=== PATIENT | female | born 1960 | race Caucasian/White ===

== ENCOUNTER → 2020-06-29 10:15 | Outpatient (BNVA) | payer OTHER, SELFPAY | PROVIDERS: PCP Family Medicine; Visit Provider Nurse Practitioner Gerontology | DX: Z13.89 Encounter for screening for other disorder (principal) | CPT/HCPCS: Q3014 ==

== ENCOUNTER → 2020-10-28 10:06 | Outpatient (BNVA) | payer OTHER, SELFPAY | PROVIDERS: PCP Family Medicine; Visit Provider Nurse Practitioner Family | DX: M17.0 Bilateral primary osteoarthritis of knee (principal); M25.511 Pain in right shoulder; G89.29 Other chronic pain | CPT/HCPCS: 99202 ==

== ENCOUNTER 2020-11-30 06:38 | Outpatient (REF) | payer OTHER, SELFPAY ==
--- NOTE | ~2020-11-30 | FL_ITS ---
EXAMINATION: XR FLUOROSCOPY WITH IMAGES CLINICAL INFORMATION: M17.0 - Bilateral primary osteoarthritis of knee COMPARISON: None. TECHNIQUE: Fluoroscopy performed by Blaire Man NP. Fluoroscopy time: 0.3 minutes DAP: 0.971 Gycm2 Images: 2 FINDINGS: There are spinal needles adjacent to the distal femur on the medial and lateral sides, mid depth. There is also a spinal needle adjacent to the medial side proximal tibia mid depth. There is tricompartment osteoarthritis, greatest medial compartment with joint narrowing and subchondral sclerosis and osteophytes. There is secondary genu varus. FL/FL guidance in treatment room IMPRESSION: Fluoroscopy for pain management procedure.
== END 2020-11-30 06:39 | disposition home or self-care (01) ==
LOC: HO.RADIR 06:38
PROVIDERS: Visit Provider Internal Medicine
DX: G89.29 Other chronic pain (principal); M25.562 Pain in left knee; M25.561 Pain in right knee; M17.0 Bilateral primary osteoarthritis of knee
CPT/HCPCS: 64450; 64454

== ENCOUNTER → 2020-12-05 11:05 | Outpatient (BNVA) | payer OTHER, SELFPAY | PROVIDERS: PCP Family Medicine; Visit Provider Internal Medicine | DX: M25.561 Pain in right knee (principal); M25.562 Pain in left knee; G89.29 Other chronic pain | CPT/HCPCS: Q3014 ==

== ENCOUNTER → 2020-12-12 11:49 | Outpatient (BNVA) | payer OTHER, SELFPAY | PROVIDERS: PCP Family Medicine; Visit Provider Internal Medicine | DX: M25.561 Pain in right knee (principal); M25.562 Pain in left knee; M25.511 Pain in right shoulder; G89.29 Other chronic pain | CPT/HCPCS: Q3014 ==

== ENCOUNTER 2021-01-11 07:00 | Outpatient (REF) | payer OTHER, SELFPAY | END 2021-01-11 07:01 | disposition home or self-care (01) | LOC: HO.RADIR 07:00 | PROVIDERS: Visit Provider Internal Medicine | DX: Z13.89 Encounter for screening for other disorder (principal) ==

== ENCOUNTER 2021-01-25 06:17 | Outpatient (REF) | payer OTHER, SELFPAY ==
--- NOTE | ~2021-01-25 | FL_ITS ---
EXAMINATION: XR FLUOROSCOPY WITH IMAGES CLINICAL INFORMATION: M25.561 - Pain in right knee COMPARISON: None. TECHNIQUE: Fluoroscopy performed by Dr. Vivas. Fluoroscopy time: 0.3 minutes DAP: 1.61 Gycm2 Images: 2 FINDINGS: There are needles adjacent to the distal femur on both the medial and lateral sides at mid depth. There is also a needle adjacent to the medial side proximal tibia at mid depth. There is tricompartment right knee osteoarthritis, greatest medial knee joint compartment with secondary genu varus. FL/FL guidance in treatment room IMPRESSION: Fluoroscopy for pain management procedure.
== END 2021-01-25 06:18 | disposition home or self-care (01) ==
LOC: HO.RADIR 06:17
PROVIDERS: Visit Provider Internal Medicine
DX: G89.29 Other chronic pain (principal); M25.561 Pain in right knee; M17.0 Bilateral primary osteoarthritis of knee
CPT/HCPCS: 64450; 64454

== ENCOUNTER → 2021-02-01 12:02 | Outpatient (BNVA) | payer OTHER, SELFPAY | PROVIDERS: PCP Family Medicine; Visit Provider Nurse Practitioner Family | DX: Z13.89 Encounter for screening for other disorder (principal) | CPT/HCPCS: Q3014 ==

== ENCOUNTER 2021-05-24 12:19 | Day surgery (SDC) | payer OTHER, SELFPAY ==
--- NOTE | 2021-05-23 09:31 | P.CONAN_ITS ---
Documented by User: Keisha Toth NP 05/23/21 09:35 HPI - Anesthesia Eval Consult details Narrative: 60yo F for Left Genicular Nerve RFA Cardiac cleared at low risk *Multiple Med Allergies* PMFSH Active Problems Active Problems: All Active Problems (Updated 12/01/20 @ 13:16 by Enrique Vivas MD) Bilateral chronic knee pain (Acute) Chronic right shoulder pain (Acute) Bilateral primary osteoarthritis of knee (Acute) Controlled diabetes mellitus without complication, without long-term current use of insulin (Acute) Hyperlipidemia LDL goal <100 (Acute) Essential hypertension (Acute) Morbid obesity due to excess calories (Acute) Past Medical History Medical History (Updated 05/23/21 @ 09:35 by Keisha Toth NP) Asthma Bilateral chronic knee pain Binge eating disorder CAD (coronary artery disease) Carpal tunnel syndrome Controlled diabetes mellitus without complication, without long-term current use of insulin Essential hypertension GERD (gastroesophageal reflux disease) Hearing loss Hyperlipidemia LDL goal <100 Lymphedema Morbid obesity due to excess calories DAVE (obstructive sleep apnea) Osteoarthritis PTSD (post-traumatic stress disorder) Family History Family History (Updated 06/29/20 @ 13:15 by LOULOU Gentile) Father CVD (cardiovascular disease) Mother CVD (cardiovascular disease) Surgical History Surgical History (Updated 05/23/21 @ 09:35 by Keisha Toth NP) History of cardiac cath Hx of arthroscopy Hx of knee surgery Hx of shoulder surgery Hx of tonsillectomy Hx of total hysterectomy Social History Social History (Updated 06/29/20 @ 10:16 by LOULOU Gentile) Household Members: None Patient Tobacco Use Status: Never used Tobacco Use of substances other than those prescribed or required for medical reasons: No Are you DNR?: No Advance Directives: No Advance Directives Information Provided: Yes Recently lost weight without trying: No Nutrition Risks: No Nutritional Risk Meds Allergies Allergy/AdvReac Type Severity Reaction Status Date / Time amitriptyline Allergy Unknown unknown Verified 02/01/21 12:04 butoconazole Allergy Unknown unknown Verified 02/01/21 12:04 carbamazepine Allergy Unknown unknown Verified 02/01/21 12:04 cyclobenzaprine Allergy Unknown hives Verified 02/01/21 12:04 eszopiclone Allergy Unknown hives Verified 02/01/21 12:04 haloperidol Allergy Unknown hives Verified 02/01/21 12:04 naproxen Allergy Unknown unknown Verified 02/01/21 12:04 penicillamine Allergy Unknown hives Verified 02/01/21 12:04 perphenazine Allergy Unknown Unknown Verified 02/01/21 12:04 topiramate Allergy Unknown unknown Verified 02/01/21 12:04 zolpidem Allergy Unknown unknown Verified 02/01/21 12:04 Anaprox Allergy Unknown unknown Uncoded 02/01/21 12:04 ChlorproMAZINE Allergy Unknown hives Uncoded 02/01/21 12:04 Elavil Allergy Unknown hives Uncoded 02/01/21 12:04 kiwi Allergy Unknown hives Uncoded 02/01/21 12:04 peaches Allergy Unknown hives Uncoded 02/01/21 12:04 Perphenazine-Amitriptylin Allergy Unknown hives Uncoded 02/01/21 12:04 e squash Allergy Unknown Hives Uncoded 02/01/21 12:04 Sulfacet-R Allergy Unknown hives Uncoded 02/01/21 12:04 Thorazine Allergy Unknown hives Uncoded 02/01/21 12:04 Home Medications Medication Instructions Recorded Confirmed Last Taken Type Saccharomyces 250 mg PO DAILY 06/29/20 11/30/20 Unknown History boulardii 250 mg capsule acetaminophen 500 1,000 mg PO tab 06/29/20 11/30/20 Unknown History mg tablet albuterol sulfate 2 puff 06/29/20 11/30/20 Unknown History 90 mcg/actuation INHALATION Q4-6H PRN aerosol inhaler atorvastatin 40 40 mg PO tab 06/29/20 11/30/20 Unknown History mg tablet blood sugar #10 ea 06/29/20 11/30/20 Unknown History diagnostic cetirizine 10 mg 10 mg PO tab 06/29/20 11/30/20 Unknown History tablet cholecalciferol 50 mcg PO DAILY 06/29/20 11/30/20 Unknown History (vitamin D3) 50 mcg (2,000 unit) tablet clonazepam 0.5 mg 0.5 mg PO BID 06/29/20 11/30/20 Unknown History tablet PRN cranberry fruit 450 mg PO tab 06/29/20 11/30/20 Unknown History 450 mg tablet duloxetine 30 mg 30 mg PO DAILY 06/29/20 11/30/20 Unknown History capsule,delayed release furosemide 20 mg 20 mg PO DAILY 06/29/20 11/30/20 Unknown History tablet gabapentin 300 mg 600 mg PO TID 06/29/20 11/30/20 Unknown History capsule cap lancets 28 gauge #100 ea 06/29/20 11/30/20 Unknown History levothyroxine 50 50 mcg PO DAILY 06/29/20 11/30/20 Unknown History mcg tablet losartan 25 mg 12.5 mg PO DAILY 06/29/20 11/30/20 Unknown History tablet metformin 500 mg 500 mg PO BID 06/29/20 11/30/20 Unknown History tablet multivitamin 1 tab PO DAILY 06/29/20 11/30/20 Unknown History omeprazole 40 mg 40 mg PO DAILY 06/29/20 11/30/20 Unknown History capsule,delayed release polyethylene g PO 06/29/20 11/30/20 Unknown History glycol 3350 17 gram/dose oral powder risperidone 1 mg 1 mg PO BID 06/29/20 11/30/20 Unknown History tablet trazodone 50 mg 50 mg PO BEDTIME 06/29/20 11/30/20 Unknown History tablet aspirin 81 mg 81 mg PO DAILY 10/28/20 11/30/20 Unknown History tablet,delayed release (Adult Low Dose Aspirin) benztropine 1 mg 1 mg PO BID 10/28/20 11/30/20 Unknown History tablet lubiprostone 24 24 mcg PO BID 10/28/20 11/30/20 Unknown History mcg capsule cap oxcarbazepine 150 150 mg PO BID 10/28/20 11/30/20 Unknown History mg tablet (Trileptal) zafirlukast 20 mg 20 mg PO BID 10/28/20 11/30/20 Unknown History tablet (Accolate) Exam Exam Date and Time: May 23, [id number] Assessment and Plan Assessment Anesthesia Assessment: Chart Reviewed Documented by User: Demetrio Newton MD 05/24/21 14:58 [facility] Past Medical History Medical History (Updated 05/23/21 @ 09:35 by Keisha Toth NP) Asthma Bilateral chronic knee pain Binge eating disorder CAD (coronary artery disease) Carpal tunnel syndrome Controlled diabetes mellitus without complication, without long-term current use of insulin Essential hypertension GERD (gastroesophageal reflux disease) Hearing loss Hyperlipidemia LDL goal <100 Lymphedema Morbid obesity due to excess calories DAVE (obstructive sleep apnea) Osteoarthritis PTSD (post-traumatic stress disorder) Family History Family History (Updated 06/29/20 @ 13:15 by LOULOU Gentile) Father CVD (cardiovascular disease) Mother CVD (cardiovascular disease) Family history of problems with anesthesia: No Surgical History Surgical History (Updated 05/23/21 @ 09:35 by Keisha Toth NP) History of cardiac cath Hx of arthroscopy Hx of knee surgery Hx of shoulder surgery Hx of tonsillectomy Hx of total hysterectomy History of Problems with Anesthesia: No Social History Social History (Updated 06/29/20 @ 10:16 by LOULOU Gentile) Household Members: None Patient Tobacco Use Status: Never used Tobacco Use of substances other than those prescribed or required for medical reasons: No Are you DNR?: No Advance Directives: No Advance Directives Information Provided: Yes Recently lost weight without trying: No Nutrition Risks: No Nutritional Risk Meds Allergies Allergy/AdvReac Type Severity Reaction Status Date / Time amitriptyline Allergy Unknown unknown Verified 02/01/21 12:04 butoconazole Allergy Unknown unknown Verified 02/01/21 12:04 carbamazepine Allergy Unknown unknown Verified 02/01/21 12:04 cyclobenzaprine Allergy Unknown hives Verified 02/01/21 12:04 eszopiclone Allergy Unknown hives Verified 02/01/21 12:04 haloperidol Allergy Unknown hives Verified 02/01/21 12:04 naproxen Allergy Unknown unknown Verified 02/01/21 12:04 penicillamine Allergy Unknown hives Verified 02/01/21 12:04 perphenazine Allergy Unknown Unknown Verified 02/01/21 12:04 topiramate Allergy Unknown unknown Verified 02/01/21 12:04 zolpidem Allergy Unknown unknown Verified 02/01/21 12:04 Anaprox Allergy Unknown unknown Uncoded 02/01/21 12:04 ChlorproMAZINE Allergy Unknown hives Uncoded 02/01/21 12:04 Elavil Allergy Unknown hives Uncoded 02/01/21 12:04 kiwi Allergy Unknown hives Uncoded 02/01/21 12:04 peaches Allergy Unknown hives Uncoded 02/01/21 12:04 Perphenazine-Amitriptylin Allergy Unknown hives Uncoded 02/01/21 12:04 e squash Allergy Unknown Hives Uncoded 02/01/21 12:04 Sulfacet-R Allergy Unknown hives Uncoded 02/01/21 12:04 Thorazine Allergy Unknown hives Uncoded 02/01/21 12:04 Home Medications Medication Instructions Recorded Confirmed Last Taken Type Saccharomyces 250 mg PO DAILY 06/29/20 11/30/20 Unknown History boulardii 250 mg capsule acetaminophen 500 1,000 mg PO tab 06/29/20 11/30/20 Unknown History mg tablet albuterol sulfate 2 puff 06/29/20 11/30/20 Unknown History 90 mcg/actuation INHALATION Q4-6H PRN aerosol inhaler atorvastatin 40 40 mg PO tab 06/29/20 11/30/20 Unknown History mg tablet blood sugar #10 ea 06/29/20 11/30/20 Unknown History diagnostic cetirizine 10 mg 10 mg PO tab 06/29/20 11/30/20 Unknown History tablet cholecalciferol 50 mcg PO DAILY 06/29/20 11/30/20 Unknown History (vitamin D3) 50 mcg (2,000 unit) tablet clonazepam 0.5 mg 0.5 mg PO BID 06/29/20 11/30/20 Unknown History tablet PRN cranberry fruit 450 mg PO tab 06/29/20 11/30/20 Unknown History 450 mg tablet duloxetine 30 mg 30 mg PO DAILY 06/29/20 11/30/20 Unknown History capsule,delayed release furosemide 20 mg 20 mg PO DAILY 06/29/20 11/30/20 Unknown History tablet gabapentin 300 mg 600 mg PO TID 06/29/20 11/30/20 Unknown History capsule cap lancets 28 gauge #100 ea 06/29/20 11/30/20 Unknown History levothyroxine 50 50 mcg PO DAILY 06/29/20 11/30/20 Unknown History mcg tablet losartan 25 mg 12.5 mg PO DAILY 06/29/20 11/30/20 Unknown History tablet metformin 500 mg 500 mg PO BID 06/29/20 11/30/20 Unknown History tablet multivitamin 1 tab PO DAILY 06/29/20 11/30/20 Unknown History omeprazole 40 mg 40 mg PO DAILY 06/29/20 11/30/20 Unknown History capsule,delayed release polyethylene g PO 06/29/20 11/30/20 Unknown History glycol 3350 17 gram/dose oral powder risperidone 1 mg 1 mg PO BID 06/29/20 11/30/20 Unknown History tablet trazodone 50 mg 50 mg PO BEDTIME 06/29/20 11/30/20 Unknown History tablet aspirin 81 mg 81 mg PO DAILY 10/28/20 11/30/20 Unknown History tablet,delayed release (Adult Low Dose Aspirin) benztropine 1 mg 1 mg PO BID 10/28/20 11/30/20 Unknown History tablet lubiprostone 24 24 mcg PO BID 10/28/20 11/30/20 Unknown History mcg capsule cap oxcarbazepine 150 150 mg PO BID 10/28/20 11/30/20 Unknown History mg tablet (Trileptal) zafirlukast 20 mg 20 mg PO BID 10/28/20 11/30/20 Unknown History tablet (Accolate) Exam Airway Mallampati Class: III TM Dist: >3cm Neck ROM: Full Loose/Missing/Broken Teeth: No Heart: [id number] Lungs: cta b/l Assessment and Plan Assessment Anesthesia Assessment: Anesthesia Plan Discussed Final Anesthetic Review Family History of Problems with Anesthesia: No History of Problems with Anesthesia: No NPO: Yes ASA Class: III Final Preanesthetic Review: No Changes in Pt Med Stat, Meds/Allgs Chart Reviewed, Consent Obtained/Reviewed and Anes Risks/Benef Reviewed Patient Risk: Intermediate Procedure Risk: Low Assessment/Block/Sedation in SS: Assess/Block/Sedation-SS Anesthetic Plan Anesthetic Plan: MAC: and Agree w/ Assess. and Plan Disposition: Standard PACU
--- NOTE | 2021-05-23 09:31 | HO.ANESPROP2 ---
Documented by User: Keisha Toth NP 05/23/21 09:35 HPI - Anesthesia Eval Consult details Narrative: 60yo F for Left Genicular Nerve RFA Cardiac cleared at low risk *Multiple Med Allergies* PMFSH Active Problems Active Problems: All Active Problems (Updated 12/01/20 @ 13:16 by Enrique Vivas MD) Bilateral chronic knee pain (Acute) Chronic right shoulder pain (Acute) Bilateral primary osteoarthritis of knee (Acute) Controlled diabetes mellitus without complication, without long-term current use of insulin (Acute) Hyperlipidemia LDL goal <100 (Acute) Essential hypertension (Acute) Morbid obesity due to excess calories (Acute) Past Medical History Medical History (Updated 05/23/21 @ 09:35 by Keisha Toth NP) Asthma Bilateral chronic knee pain Binge eating disorder CAD (coronary artery disease) Carpal tunnel syndrome Controlled diabetes mellitus without complication, without long-term current use of insulin Essential hypertension GERD (gastroesophageal reflux disease) Hearing loss Hyperlipidemia LDL goal <100 Lymphedema Morbid obesity due to excess calories DAVE (obstructive sleep apnea) Osteoarthritis PTSD (post-traumatic stress disorder) Family History Family History (Updated 06/29/20 @ 13:15 by LOULOU Gentile) Father CVD (cardiovascular disease) Mother CVD (cardiovascular disease) Surgical History Surgical History (Updated 05/23/21 @ 09:35 by Keisha Toth NP) History of cardiac cath Hx of arthroscopy Hx of knee surgery Hx of shoulder surgery Hx of tonsillectomy Hx of total hysterectomy Social History Social History (Updated 06/29/20 @ 10:16 by LOULOU Gentile) Household Members: None Patient Tobacco Use Status: Never used Tobacco Use of substances other than those prescribed or required for medical reasons: No Are you DNR?: No Advance Directives: No Advance Directives Information Provided: Yes Recently lost weight without trying: No Nutrition Risks: No Nutritional Risk Meds Allergies Allergy/AdvReac Type Severity Reaction Status Date / Time amitriptyline Allergy Unknown unknown Verified 02/01/21 12:04 butoconazole Allergy Unknown unknown Verified 02/01/21 12:04 carbamazepine Allergy Unknown unknown Verified 02/01/21 12:04 cyclobenzaprine Allergy Unknown hives Verified 02/01/21 12:04 eszopiclone Allergy Unknown hives Verified 02/01/21 12:04 haloperidol Allergy Unknown hives Verified 02/01/21 12:04 naproxen Allergy Unknown unknown Verified 02/01/21 12:04 penicillamine Allergy Unknown hives Verified 02/01/21 12:04 perphenazine Allergy Unknown Unknown Verified 02/01/21 12:04 topiramate Allergy Unknown unknown Verified 02/01/21 12:04 zolpidem Allergy Unknown unknown Verified 02/01/21 12:04 Anaprox Allergy Unknown unknown Uncoded 02/01/21 12:04 ChlorproMAZINE Allergy Unknown hives Uncoded 02/01/21 12:04 Elavil Allergy Unknown hives Uncoded 02/01/21 12:04 kiwi Allergy Unknown hives Uncoded 02/01/21 12:04 peaches Allergy Unknown hives Uncoded 02/01/21 12:04 Perphenazine-Amitriptyline Allergy Unknown hives Uncoded 02/01/21 12:04 squash Allergy Unknown Hives Uncoded 02/01/21 12:04 Sulfacet-R Allergy Unknown hives Uncoded 02/01/21 12:04 Thorazine Allergy Unknown hives Uncoded 02/01/21 12:04 Home Medications Medication Instructions Recorded Confirmed Last Taken Type Saccharomyces boulardii 250 mg 250 mg PO DAILY 06/29/20 11/30/20 Unknown History capsule acetaminophen 500 mg tablet 1,000 mg PO tab 06/29/20 11/30/20 Unknown History albuterol sulfate 90 mcg/actuation 2 puff INHALATION Q4-6H PRN 06/29/20 11/30/20 Unknown History aerosol inhaler atorvastatin 40 mg tablet 40 mg PO tab 06/29/20 11/30/20 Unknown History blood sugar diagnostic #10 ea 06/29/20 11/30/20 Unknown History cetirizine 10 mg tablet 10 mg PO tab 06/29/20 11/30/20 Unknown History cholecalciferol (vitamin D3) 50 50 mcg PO DAILY 06/29/20 11/30/20 Unknown History mcg (2,000 unit) tablet clonazepam 0.5 mg tablet 0.5 mg PO BID PRN 06/29/20 11/30/20 Unknown History cranberry fruit 450 mg tablet 450 mg PO tab 06/29/20 11/30/20 Unknown History duloxetine 30 mg capsule,delayed 30 mg PO DAILY 06/29/20 11/30/20 Unknown History release furosemide 20 mg tablet 20 mg PO DAILY 06/29/20 11/30/20 Unknown History gabapentin 300 mg capsule 600 mg PO TID cap 06/29/20 11/30/20 Unknown History lancets 28 gauge #100 ea 06/29/20 11/30/20 Unknown History levothyroxine 50 mcg tablet 50 mcg PO DAILY 06/29/20 11/30/20 Unknown History losartan 25 mg tablet 12.5 mg PO DAILY 06/29/20 11/30/20 Unknown History metformin 500 mg tablet 500 mg PO BID 06/29/20 11/30/20 Unknown History multivitamin 1 tab PO DAILY 06/29/20 11/30/20 Unknown History omeprazole 40 mg capsule,delayed 40 mg PO DAILY 06/29/20 11/30/20 Unknown History release polyethylene glycol 3350 17 g PO 06/29/20 11/30/20 Unknown History gram/dose oral powder risperidone 1 mg tablet 1 mg PO BID 06/29/20 11/30/20 Unknown History trazodone 50 mg tablet 50 mg PO BEDTIME 06/29/20 11/30/20 Unknown History aspirin 81 mg tablet,delayed 81 mg PO DAILY 10/28/20 11/30/20 Unknown History release (Adult Low Dose Aspirin) benztropine 1 mg tablet 1 mg PO BID 10/28/20 11/30/20 Unknown History lubiprostone 24 mcg capsule 24 mcg PO BID cap 10/28/20 11/30/20 Unknown History oxcarbazepine 150 mg tablet 150 mg PO BID 10/28/20 11/30/20 Unknown History (Trileptal) zafirlukast 20 mg tablet (Accolate) 20 mg PO BID 10/28/20 11/30/20 Unknown History Exam Exam Date and Time: May 23, [id number] Assessment and Plan Assessment Anesthesia Assessment: Chart Reviewed Documented by User: Demetrio Newton MD 05/24/21 14:58 [facility] Past Medical History Medical History (Updated 05/23/21 @ 09:35 by Keisha Toth NP) Asthma Bilateral chronic knee pain Binge eating disorder CAD (coronary artery disease) Carpal tunnel syndrome Controlled diabetes mellitus without complication, without long-term current use of insulin Essential hypertension GERD (gastroesophageal reflux disease) Hearing loss Hyperlipidemia LDL goal <100 Lymphedema Morbid obesity due to excess calories DAVE (obstructive sleep apnea) Osteoarthritis PTSD (post-traumatic stress disorder) Family History Family History (Updated 06/29/20 @ 13:15 by LOULOU Gentile) Father CVD (cardiovascular disease) Mother CVD (cardiovascular disease) Family history of problems with anesthesia: No Surgical History Surgical History (Updated 05/23/21 @ 09:35 by Keisha Toth NP) History of cardiac cath Hx of arthroscopy Hx of knee surgery Hx of shoulder surgery Hx of tonsillectomy Hx of total hysterectomy History of Problems with Anesthesia: No Social History Social History (Updated 06/29/20 @ 10:16 by LOULOU Gentile) Household Members: None Patient Tobacco Use Status: Never used Tobacco Use of substances other than those prescribed or required for medical reasons: No Are you DNR?: No Advance Directives: No Advance Directives Information Provided: Yes Recently lost weight without trying: No Nutrition Risks: No Nutritional Risk Meds Allergies Allergy/AdvReac Type Severity Reaction Status Date / Time amitriptyline Allergy Unknown unknown Verified 02/01/21 12:04 butoconazole Allergy Unknown unknown Verified 02/01/21 12:04 carbamazepine Allergy Unknown unknown Verified 02/01/21 12:04 cyclobenzaprine Allergy Unknown hives Verified 02/01/21 12:04 eszopiclone Allergy Unknown hives Verified 02/01/21 12:04 haloperidol Allergy Unknown hives Verified 02/01/21 12:04 naproxen Allergy Unknown unknown Verified 02/01/21 12:04 penicillamine Allergy Unknown hives Verified 02/01/21 12:04 perphenazine Allergy Unknown Unknown Verified 02/01/21 12:04 topiramate Allergy Unknown unknown Verified 02/01/21 12:04 zolpidem Allergy Unknown unknown Verified 02/01/21 12:04 Anaprox Allergy Unknown unknown Uncoded 02/01/21 12:04 ChlorproMAZINE Allergy Unknown hives Uncoded 02/01/21 12:04 Elavil Allergy Unknown hives Uncoded 02/01/21 12:04 kiwi Allergy Unknown hives Uncoded 02/01/21 12:04 peaches Allergy Unknown hives Uncoded 02/01/21 12:04 Perphenazine-Amitriptyline Allergy Unknown hives Uncoded 02/01/21 12:04 squash Allergy Unknown Hives Uncoded 02/01/21 12:04 Sulfacet-R Allergy Unknown hives Uncoded 02/01/21 12:04 Thorazine Allergy Unknown hives Uncoded 02/01/21 12:04 Home Medications Medication Instructions Recorded Confirmed Last Taken Type Saccharomyces boulardii 250 mg 250 mg PO DAILY 06/29/20 11/30/20 Unknown History capsule acetaminophen 500 mg tablet 1,000 mg PO tab 06/29/20 11/30/20 Unknown History albuterol sulfate 90 mcg/actuation 2 puff INHALATION Q4-6H PRN 06/29/20 11/30/20 Unknown History aerosol inhaler atorvastatin 40 mg tablet 40 mg PO tab 06/29/20 11/30/20 Unknown History blood sugar diagnostic #10 ea 06/29/20 11/30/20 Unknown History cetirizine 10 mg tablet 10 mg PO tab 06/29/20 11/30/20 Unknown History cholecalciferol (vitamin D3) 50 50 mcg PO DAILY 06/29/20 11/30/20 Unknown History mcg (2,000 unit) tablet clonazepam 0.5 mg tablet 0.5 mg PO BID PRN 06/29/20 11/30/20 Unknown History cranberry fruit 450 mg tablet 450 mg PO tab 06/29/20 11/30/20 Unknown History duloxetine 30 mg capsule,delayed 30 mg PO DAILY 06/29/20 11/30/20 Unknown History release furosemide 20 mg tablet 20 mg PO DAILY 06/29/20 11/30/20 Unknown History gabapentin 300 mg capsule 600 mg PO TID cap 06/29/20 11/30/20 Unknown History lancets 28 gauge #100 ea 06/29/20 11/30/20 Unknown History levothyroxine 50 mcg tablet 50 mcg PO DAILY 06/29/20 11/30/20 Unknown History losartan 25 mg tablet 12.5 mg PO DAILY 06/29/20 11/30/20 Unknown History metformin 500 mg tablet 500 mg PO BID 06/29/20 11/30/20 Unknown History multivitamin 1 tab PO DAILY 06/29/20 11/30/20 Unknown History omeprazole 40 mg capsule,delayed 40 mg PO DAILY 06/29/20 11/30/20 Unknown History release polyethylene glycol 3350 17 g PO 06/29/20 11/30/20 Unknown History gram/dose oral powder risperidone 1 mg tablet 1 mg PO BID 06/29/20 11/30/20 Unknown History trazodone 50 mg tablet 50 mg PO BEDTIME 06/29/20 11/30/20 Unknown History aspirin 81 mg tablet,delayed 81 mg PO DAILY 10/28/20 11/30/20 Unknown History release (Adult Low Dose Aspirin) benztropine 1 mg tablet 1 mg PO BID 10/28/20 11/30/20 Unknown History lubiprostone 24 mcg capsule 24 mcg PO BID cap 10/28/20 11/30/20 Unknown History oxcarbazepine 150 mg tablet 150 mg PO BID 10/28/20 11/30/20 Unknown History (Trileptal) zafirlukast 20 mg tablet (Accolate) 20 mg PO BID 10/28/20 11/30/20 Unknown History Exam Airway Mallampati Class: III TM Dist: >3cm Neck ROM: Full Loose/Missing/Broken Teeth: No Heart: rrr+[id number] Lungs: cta b/l Assessment and Plan Assessment Anesthesia Assessment: Anesthesia Plan Discussed Final Anesthetic Review Family History of Problems with Anesthesia: No History of Problems with Anesthesia: No NPO: Yes ASA Class: III Final Preanesthetic Review: No Changes in Pt Med Stat, Meds/Allgs Chart Reviewed, Consent Obtained/Reviewed and Anes Risks/Benef Reviewed Patient Risk: Intermediate Procedure Risk: Low Assessment/Block/Sedation in SS: Assess/Block/Sedation-SS Anesthetic Plan Anesthetic Plan: MAC: and Agree w/ Assess. and Plan Disposition: Standard PACU
--- NOTE | ~2021-05-24 | FL_ITS ---
PROCEDURE: XR FLUOROSCOPY WITH IMAGES CLINICAL INFORMATION: Genicular RFA. COMPARISON: None. TECHNIQUE: Fluoroscopy performed by Dr. Ortega Sigala. Fluoroscopy time: 0.6 minutes DAP: 0.176 mGycm2 Images: 5 FINDINGS: There is moderate loss of medial and patellofemoral compartment joint space with mild periarticular spurring. There are 2 needles placed medial and lateral to the distal femoral cortex and a solitary needle along the medial proximal tibial cortex for RFA. No soft tissue abnormality seen. No fracture or lytic process. FL/FL guidance in OR IMPRESSION: Fluoroscopy was provided to referring physician for pain management.
[2021-05-24 12:49] VITALS: BMI 56.4
[2021-05-24 12:58] LABS: Glucose, Whole Blood 113 mg/dL (60-115)
[2021-05-24 13:17] VITALS: BP 105/53; PULSE 78; RESP 16; TEMP 36.2; O2SAT 94
[2021-05-24] MEDS: Lactated Ringers 1,000 ML 100 ML IVCONT (13:35)
--- NOTE | 2021-05-24 14:28 | P.OP_ITS ---
Operative Note Operative Note Date of Service: 05/24/21 Narrative: Genicular Nerve Cooled RFL - fluoroscopic guided - Superior medial, superior lateral, and inferior medial genicular nerve radiofrequency lesioning After obtaining written consent, pre-procedure blood pressure and heart rate were stable and recorded in the nursing record. Standard monitors were applied and the patient was sedated by the switchboard and control room operator. The patient was placed supine on the fluoroscopy table. The area overlying the peripheral nerves was widely prepped with chloraprep, allowed to dry and sterilely draped. Using fluoroscopy, the appropriate landmarks were identified. The skin overlying the target was anesthetized with 0.5% lidocaine. A 18 gauge 75 mm radiofrequency needle was advanced under fluoroscopic guidance to the appropriate landmark of each peripheral nerve. Verification using lateral and AP views. Aspiration was negative for heme and synovial fluid. Impedences were verified under 600 ohms. Motor testing (2 Hz) confirmed needle placement at each site within the appropriate voltage thresholds. Each site was injected with 2 ml 2% preservative-free lidocaine. Radiofrequency lesioning was performed for 165 seconds at 80 deg Celcius tissue temperature. The needles were removed, skin cleansed and a sterile bandage was applied. The patient tolerated the procedure well and no complications were encountered. Following the procedure the patient's vital signs were stable. The patient was discharged home in good condition with post-procedural instructions. Time Out: Immediately prior to the procedure, the following was verbally confirmed that there is a signed consent form and that the correct patient, planned procedure, site and side are consistent with documentation and that necessary equipment and/or blood products are available prior to the start of the case. Complications: none EBL: <5 cc
--- NOTE | 2021-05-24 14:28 | P.BOP_ITS ---
Brief Operative Note Date of Service: 05/24/21 Pre-op diagnosis: Left knee pain Post-op diagnosis: same Procedure: Left superomedial, inferomedial and superolateral genicular nerve cooled radiofrequency ablation Surgeon: Enrique Vivas MD Anesthesia: MAC Was an Director Of Materials used for this Procedure?: No Estimated blood loss (mL): 5 Pathology: none sent Condition: stable Disposition: PACU
--- NOTE | 2021-05-24 14:29 | P.HPSUR_ITS ---
Pre-Procedural Eval Section A Date of Service: 05/24/21 The patient is an INPATIENT: No Changes since office visit: Yes Patient answered all questions The History & Physical has been completed within 30 days and I have reviewed it.: Yes Section B Chief Complaint: bilateral primary osteoarthritis of knee Relevant Family History (Specify if Yes): No Relevant Social History: None Present Medications: None Medical History: No relevant PMH Allergies: Allergies Allergy/AdvReac Type Severity Reaction Status Date / Time amitriptyline Allergy Unknown unknown Verified 02/01/21 12:04 butoconazole Allergy Unknown unknown Verified 02/01/21 12:04 carbamazepine Allergy Unknown unknown Verified 02/01/21 12:04 cyclobenzaprine Allergy Unknown hives Verified 02/01/21 12:04 eszopiclone Allergy Unknown hives Verified 02/01/21 12:04 haloperidol Allergy Unknown hives Verified 02/01/21 12:04 naproxen Allergy Unknown unknown Verified 02/01/21 12:04 penicillamine Allergy Unknown hives Verified 02/01/21 12:04 perphenazine Allergy Unknown Unknown Verified 02/01/21 12:04 topiramate Allergy Unknown unknown Verified 02/01/21 12:04 zolpidem Allergy Unknown unknown Verified 02/01/21 12:04 Anaprox Allergy Unknown unknown Uncoded 02/01/21 12:04 ChlorproMAZINE Allergy Unknown hives Uncoded 02/01/21 12:04 Elavil Allergy Unknown hives Uncoded 02/01/21 12:04 kiwi Allergy Unknown hives Uncoded 02/01/21 12:04 peaches Allergy Unknown hives Uncoded 02/01/21 12:04 Perphenazine-Amitriptylin Allergy Unknown hives Uncoded 02/01/21 12:04 e squash Allergy Unknown Hives Uncoded 02/01/21 12:04 Sulfacet-R Allergy Unknown hives Uncoded 02/01/21 12:04 Thorazine Allergy Unknown hives Uncoded 02/01/21 12:04 Plan Diagnosis/Plan: Unchanged I have reviewed the history and physical and performed a pertinent physical examination on my patient. No changes have occurred unless specified.
[2021-05-24 16:09] VITALS: BP 129/61; PULSE 89; RESP 12; TEMP 37.2; O2SAT 100
[2021-05-24 16:24] VITALS: BP 130/54; PULSE 88; RESP 16; TEMP 37.1; O2SAT 97
== END 2021-05-24 16:45 | disposition home or self-care (01) ==
PROVIDERS: PCP Family Medicine; Visit Provider Internal Medicine
PROC: (CPT 64624; principal; 2021-05-24 14:00)
DX: M17.12 Unilateral primary osteoarthritis, left knee (principal); G89.29 Other chronic pain; M25.562 Pain in left knee; I10 Essential (primary) hypertension; G47.33 Obstructive sleep apnea (adult) (pediatric); F43.10 Post-traumatic stress disorder, unspecified; F32.9 Major depressive disorder, single episode, unspecified; E66.01 Morbid (severe) obesity due to excess calories; E11.9 Type 2 diabetes mellitus without complications; Z88.8 Allergy status to other drugs, medicaments and biological substances; Z85.42 Personal history of malignant neoplasm of other parts of uterus
CPT/HCPCS: 64624; 82947; J1100; J2250; J3010

== ENCOUNTER → 2021-06-02 09:38 | Outpatient (BNVA) | payer OTHER, SELFPAY | PROVIDERS: PCP Family Medicine; Visit Provider Internal Medicine | DX: M25.561 Pain in right knee (principal); M25.562 Pain in left knee; G89.29 Other chronic pain | CPT/HCPCS: Q3014 ==

== ENCOUNTER → 2021-06-26 10:29 | Outpatient (BNVA) | payer OTHER, SELFPAY | PROVIDERS: PCP Family Medicine; Visit Provider Internal Medicine | DX: M25.561 Pain in right knee (principal); M25.562 Pain in left knee; M17.0 Bilateral primary osteoarthritis of knee; G89.29 Other chronic pain | CPT/HCPCS: 99212 ==

== ENCOUNTER → 2022-02-16 09:55 | Outpatient (BNVA) | payer OTHER, SELFPAY | PROVIDERS: PCP Family Medicine; Visit Provider Internal Medicine | DX: M25.561 Pain in right knee (principal); M25.562 Pain in left knee; M25.511 Pain in right shoulder; G89.29 Other chronic pain | CPT/HCPCS: 99212 ==

== ENCOUNTER → 2022-07-23 10:25 | Outpatient (BNVA) | payer OTHER, SELFPAY | PROVIDERS: PCP Family Medicine; Visit Provider Internal Medicine | DX: M25.561 Pain in right knee (principal); M25.562 Pain in left knee; M25.511 Pain in right shoulder; G89.29 Other chronic pain | CPT/HCPCS: 99212 ==

== ENCOUNTER 2023-04-05 10:02 | Outpatient (AMB) | payer OTHER, SELFPAY ==
--- NOTE | 2023-04-05 10:04 | A.OFFVIS_ITS ---
Intake Vital Signs 04/05/23 10:05 Height 5 ft 1.5 in Weight 262 lb BMI 48.7 Blood Pressure Location Rt brachial Position Sitting Respiration 12 Pulse 81 Pulse Source Pulse Oximeter Pulse Oximetry (%) 95 Oxygen Delivery Method Room Air Intake Visit Reasons: Follow Up/Knee Pain/confirmed Allergies amitriptyline Allergy (Unknown, Verified 04/05/23 10:07) unknown butoconazole Allergy (Unknown, Verified 04/05/23 10:07) unknown carbamazepine Allergy (Unknown, Verified 04/05/23 10:07) unknown cyclobenzaprine Allergy (Unknown, Verified 04/05/23 10:07) hives eszopiclone Allergy (Unknown, Verified 04/05/23 10:07) hives haloperidol Allergy (Unknown, Verified 04/05/23 10:07) hives naproxen Allergy (Unknown, Verified 04/05/23 10:07) unknown penicillamine Allergy (Unknown, Verified 04/05/23 10:07) hives perphenazine Allergy (Unknown, Verified 04/05/23 10:07) Unknown topiramate Allergy (Unknown, Verified 04/05/23 10:07) unknown zolpidem Allergy (Unknown, Verified 04/05/23 10:07) unknown Anaprox Allergy (Unknown, Uncoded 04/05/23 10:07) unknown ChlorproMAZINE Allergy (Unknown, Uncoded 04/05/23 10:07) hives Elavil Allergy (Unknown, Uncoded 04/05/23 10:07) hives kiwi Allergy (Unknown, Uncoded 04/05/23 10:07) hives peaches Allergy (Unknown, Uncoded 04/05/23 10:07) hives Perphenazine-Amitriptyline Allergy (Unknown, Uncoded 04/05/23 10:07) hives squash Allergy (Unknown, Uncoded 04/05/23 10:07) Hives Sulfacet-R Allergy (Unknown, Uncoded 04/05/23 10:07) hives Thorazine Allergy (Unknown, Uncoded 04/05/23 10:07) hives Medication List - Last Reconciled 04/05/23 by Chiara Dumas, RICKEY acetaminophen 500 mg PO TID albuterol sulfate 90 mcg/actuation 2 puffs inhalation Q4-6H PRN aspirin (Adult Low Dose Aspirin) 81 mg PO DAILY atorvastatin 40 mg PO benztropine 1 mg PO BID blood sugar diagnostic As directed cetirizine 10 mg PO cholecalciferol (vitamin D3) 50 mcg PO DAILY clonazepam 0.5 mg PO BID PRN cranberry fruit (cranberry) mg PO duloxetine 30 mg PO DAILY dupilumab (Dupixent) mg subcut famotidine 20 mg PO DAILY furosemide 20 mg PO DAILY gabapentin 800 mg (2 x 400 mg) PO TID hydroxyzine HCl 25 mg PO DAILY lancets As directed levothyroxine 50 mcg PO DAILY losartan 12.5 mg PO DAILY lubiprostone 24 mcg PO BID metformin 500 mg PO BID metoclopramide HCl 10 mg PO TID multivitamin 1 tab PO DAILY pantoprazole 0 mg PO BID plecanatide (Trulance) 3 mg PO DAILY polyethylene glycol 3350 grams PO risperidone 1 mg PO BID trazodone 50 mg PO BEDTIME umeclidinium 62.5 mcg/actuation (Incruse Ellipta) 1 inh inhalation DAILY zafirlukast (Accolate) 20 mg PO BID HPI Follow Up/Knee Pain/confirmed HPI Details 62-year-old female who presents today to the office for a follow-up knee pain. The patient reports bilateral knee pain. She has difficulty walking or standing from the sitting position. She is using a power chair for transportation. She received two gel injections six months apart, and the last was on 04/03/2023. She has been taking three tablets of 500 milligrams of Tylenol and 600 milligrams of Motrin three times a day. The patient underwent right shoulder surgery. She was diagnosed with stage 3 kidney disease recently and was seen by her primary care physician. She is ultimately interested in knee replacement surgery. She is working on losing weight to qualify for the surgery. Past Procedures: 05/24/21: Genicular Nerve RFA ? 70% in the sitting position and 30% in standing position so far. 01/25/21: Right Diagnostic Genicular Nerv e Block ? 50% relief for 4 to 5 hours. [facility] Medical History (Updated 05/23/21 @ 09:35 by Keisha Toth NP) CAD (coronary artery disease) Bilateral chronic knee pain Binge eating disorder Carpal tunnel syndrome Lymphedema Hearing loss PTSD (post-traumatic stress disorder) Osteoarthritis GERD (gastroesophageal reflux disease) DAVE (obstructive sleep apnea) Asthma Controlled diabetes mellitus without complication, without long-term current use of insulin Hyperlipidemia LDL goal <100 Essential hypertension Morbid obesity due to excess calories Surgical History (Updated 05/23/21 @ 09:35 by Keisha Toth NP) History of cardiac cath Hx of total hysterectomy Hx of shoulder surgery Hx of arthroscopy Hx of knee surgery Hx of tonsillectomy Family History (Updated 06/29/20 @ 13:15 by LOULOU Gentile) Father CVD (cardiovascular disease) Mother CVD (cardiovascular disease) Social History (Updated 06/29/20 @ 10:16 by LOULOU Gentile) Household Members: None Patient Tobacco Use Status: Never used Tobacco Review of Systems Const All systems reviewed & are unremarkable except as noted in HPI and below Physical Exam Vital Signs: Last Vital Signs Pulse 81 04/05/23 10:05 Resp 12 04/05/23 10:05 Pulse Ox 95 04/05/23 10:05 Oxygen Delivery Method Room Air 04/05/23 10:05 BMI result Body Mass Index 48.7 General: Appears afebrile. Alert and oriented. Mood and affect appropriate. Follows and participates in conversation appropriately. Respiratory effort is unlabored. Sitting comfortably in wheelchair. Results Reviewed Results Reviewed: No imaging is available for review. Assessment & Plan Assessment & Plan (1) Bilateral chronic knee pain: Code(s): M25.561 - Pain in right knee; M25.562 - Pain in left knee; G89.29 - Other chronic pain Plan I discussed trial of an implantable nerve stimulator at the infrapatellar saphenous nerve for her intractable knee pain. Informed her regarding the details of the procedure as well as the device. I also counseled her regarding decreasing her use of ibuprofen given her recently diagnosed kidney disease. She needs alternative modes of managing her knee pain during her weight loss journey prior to qualifying for knee replacement. I will place a referral for psychology clearance. The patient will receive a call from [facility] for the psychology assessment. A device brochure was provided to the patient. She will discuss this with her sister and let us know if she has any further questions. A refill of gabapentin 800 mg T.I.D. was provided to the patient. Scribed for Dr. Vivas by Shon Cortez, medical biller coder, on 04/05/2023. I, Dr. Vivas, have personally reviewed and agree with the information entered by the scribe. Medications: Refilled gabapentin 800 mg (2 x 400 mg) PO TID 180 caps 5RF Coding Level of Care Code Est Pt Level 4 (44807) Diagnoses Bilateral chronic knee pain M25.561; M25.562; G89.29
[2023-04-05 10:05] VITALS: PULSE 81; RESP 12; O2SAT 95; BMI 48.7
== END 2023-04-05 10:30 | disposition home or self-care (01) ==
PROVIDERS: PCP Family Medicine; Visit Provider Internal Medicine
DX: G89.29 Other chronic pain (principal); M25.561 Pain in right knee; M25.562 Pain in left knee
CPT/HCPCS: 99214

== ENCOUNTER → 2023-04-05 10:02 | Outpatient (BNVA) | payer OTHER, SELFPAY | PROVIDERS: PCP Family Medicine; Visit Provider Internal Medicine | DX: M25.561 Pain in right knee (principal); M25.562 Pain in left knee; G89.29 Other chronic pain | CPT/HCPCS: 99212 ==

== ENCOUNTER 2024-03-13 10:16 | Outpatient (AMB) | payer OTHER, SELFPAY ==
--- NOTE | 2024-03-13 10:18 | MHC.OFFVIS ---
Vital Signs 03/13/24 10:20 Height 5 ft 1.5 in Weight 269 lb BMI 50.0 BP 142/71 H Blood Pressure Location Lt radial Position Sitting Respiration 15 Pulse 81 Pulse Source Pulse Oximeter Pulse Oximetry (%) 97 Oxygen Delivery Method Room Air Intake Visit Reasons: MEDICATION DISCUSSION Allergies amitriptyline Allergy (Unknown, Verified 03/13/24 10:21) unknown butoconazole Allergy (Unknown, Verified 03/13/24 10:21) unknown carbamazepine Allergy (Unknown, Verified 03/13/24 10:21) unknown cyclobenzaprine Allergy (Unknown, Verified 03/13/24 10:21) hives eszopiclone Allergy (Unknown, Verified 03/13/24 10:21) hives haloperidol Allergy (Unknown, Verified 03/13/24 10:21) hives naproxen Allergy (Unknown, Verified 03/13/24 10:21) unknown penicillamine Allergy (Unknown, Verified 03/13/24 10:21) hives perphenazine Allergy (Unknown, Verified 03/13/24 10:21) Unknown topiramate Allergy (Unknown, Verified 03/13/24 10:21) unknown zolpidem Allergy (Unknown, Verified 03/13/24 10:21) unknown Anaprox Allergy (Unknown, Uncoded 03/13/24 10:21) unknown ChlorproMAZINE Allergy (Unknown, Uncoded 03/13/24 10:21) hives Elavil Allergy (Unknown, Uncoded 03/13/24 10:21) hives kiwi Allergy (Unknown, Uncoded 03/13/24 10:21) hives peaches Allergy (Unknown, Uncoded 03/13/24 10:21) hives Perphenazine-Amitriptyline Allergy (Unknown, Uncoded 03/13/24 10:21) hives squash Allergy (Unknown, Uncoded 03/13/24 10:21) Hives Sulfacet-R Allergy (Unknown, Uncoded 03/13/24 10:21) hives Thorazine Allergy (Unknown, Uncoded 03/13/24 10:21) hives Medication List - Last Reconciled 03/13/24 by Chiara Dumas, SCREENER OPERATOR acetaminophen 500 mg PO TID albuterol sulfate 90 mcg/actuation 2 puffs inhalation Q4-6H PRN aspirin (Adult Low Dose Aspirin) 81 mg PO DAILY atorvastatin 40 mg PO benztropine 1 mg PO BID blood sugar diagnostic As directed cetirizine 10 mg PO cholecalciferol (vitamin D3) 50 mcg PO DAILY clonazepam 0.5 mg PO BID cranberry fruit (cranberry) mg PO duloxetine 30 mg PO DAILY dupilumab (Dupixent) mg subcut famotidine 20 mg PO DAILY furosemide 20 mg PO DAILY gabapentin 800 mg (2 x 400 mg) PO TID hydroxyzine HCl 25 mg PO DAILY lancets As directed levothyroxine 50 mcg PO DAILY losartan 12.5 mg PO DAILY lubiprostone 24 mcg PO BID metformin 500 mg PO BID metoclopramide HCl 10 mg PO TID multivitamin 1 tab PO DAILY pantoprazole 0 mg PO BID plecanatide (Trulance) 3 mg PO DAILY polyethylene glycol 3350 grams PO risperidone 1 mg PO BID trazodone 50 mg PO BEDTIME umeclidinium 62.5 mcg/actuation (Incruse Ellipta) 1 inh inhalation DAILY zafirlukast (Accolate) 20 mg PO BID HPI HPI MEDICATION DISCUSSION: Details: 63-year-old female who presents to the office today for evaluation of knee pain. Patient has a history of bilateral chronic knee pain. While in the office today, she reports excruciating pain in her knees, right more than left. She has difficulty walking or standing from the sitting position. She is using a motorized wheelchair for transportation. She sleeps in a recliner. She received two gel injections in the past. She is interested in knee replacement surgery, which is pending a weight goal of 200 lb. She has reduced her weight from 330 to 270 lb over the last 1 year and is looking to reach her goal weight to be able to undergo replacement. She has been taking gabapentin regularly and tolerating it well. She is requesting a refill on her gabapentin. Past Procedures: 05/24/21: Genicular Nerve RFA ? 70% in the sitting position and 30% in standing position for 6 months 01/25/21: Right Diagnostic Genicular Nerve Block ? 50% relief for 4 to 5 hours. [facility] Medical History (Updated 05/23/21 @ 09:35 by Keisha Toth NP) CAD (coronary artery disease) Bilateral chronic knee pain Binge eating disorder Carpal tunnel syndrome Lymphedema Hearing loss PTSD (post-traumatic stress disorder) Osteoarthritis GERD (gastroesophageal reflux disease) DAVE (obstructive sleep apnea) Asthma Controlled diabetes mellitus without complication, without long-term current use of insulin Hyperlipidemia LDL goal <100 Essential hypertension Morbid obesity due to excess calories Surgical History (Updated 05/23/21 @ 09:35 by Keisha Toth NP) History of cardiac cath Hx of total hysterectomy Hx of shoulder surgery Hx of arthroscopy Hx of knee surgery Hx of tonsillectomy Family History (Updated 06/29/20 @ 13:15 by LOULOU Gentile) Father CVD (cardiovascular disease) Mother CVD (cardiovascular disease) Social History (Updated 06/29/20 @ 10:16 by LOULOU Gentile) Household Members: None Patient Tobacco Use Status: Never used Tobacco Review of Systems Const All systems reviewed & are unremarkable except as noted in HPI and below Physical Exam Vital Signs: Last Vital Signs Pulse 81 03/13/24 10:20 Resp 15 03/13/24 10:20 BP 142/71 H 03/13/24 10:20 Pulse Ox 97 03/13/24 10:20 Oxygen Delivery Method Room Air 03/13/24 10:20 BMI result Body Mass Index 50.0 General: Appears afebrile. Alert and oriented. Mood and affect appropriate. Follows and participates in conversation appropriately. Respiratory effort is unlabored. Sitting comfortably in a wheelchair. Results Reviewed Results Reviewed: No imaging is available for review. Assessment & Plan Assessment & Plan (1) Bilateral chronic knee pain: Code(s): M25.561 - Pain in right knee; M25.562 - Pain in left knee; G89.29 - Other chronic pain Category: Medical Plan Patient has been battling with knee pain for a while. Discussed trial of an implantable nerve stimulator at the infrapatellar saphenous nerve for her intractable knee pain. Informed her regarding the details of the procedure as well as the device. If she does reach her goal weight, she would be a candidate for knee replacement but in the absence of any replacement, she may be a good candidate for implantable PNS as an alternative. I did discuss that pursuing an implantable PNS device should only be considered once she has either undergone or has ruled out a knee replacement option, not before. A refill of gabapentin 800 mg T.I.D. was provided to the patient. No side effects have been reported to date. Scribed for Dr. Vivas by Robbi Quick, medical practice administrator, on 03/13/2024. I, Dr. Vivas, have personally reviewed and agree with the information entered by the scribe. Medications: Refilled gabapentin 800 mg (2 x 400 mg) PO TID 180 caps 5RF Coding Level of Care Code Est Pt Level 4 (57281) Diagnoses Bilateral chronic knee pain M25.561; M25.562; G89.29
[2024-03-13 10:20] VITALS: BP 142/71; PULSE 81; RESP 15; O2SAT 97; BMI 50.0
== END 2024-03-13 10:46 | disposition home or self-care (01) ==
PROVIDERS: PCP Family Medicine; Visit Provider Internal Medicine
DX: M25.561 Pain in right knee (principal); M25.562 Pain in left knee; G89.29 Other chronic pain
CPT/HCPCS: 99214

== ENCOUNTER → 2024-03-13 10:16 | Outpatient (BNVA) | payer OTHER, SELFPAY | PROVIDERS: PCP Family Medicine; Visit Provider Internal Medicine | DX: M25.561 Pain in right knee (principal); M25.562 Pain in left knee; G89.29 Other chronic pain | CPT/HCPCS: 99212 ==